=== PATIENT | female | born 1970 | race Caucasian/White ===

== ENCOUNTER 2017-01-16 11:31 | Observation (INO) | payer OTHER ==
[~2017-01-16] VITALS: Ht 167.6 cm; Wt 62.7 kg
[2017-01-16 11:40] VITALS: BP 125/68; PULSE 74; RESP 18; TEMP 97.8; O2SAT 100
[2017-01-16] MEDS ORDERED: ASPIRIN 325 MG TAB PO ONE (12:00)
[2017-01-16] MEDS ORDERED: SODIUM CHLORIDE 0.9% FLUSH 10 ML FLUSH IVF PRN (12:00)
--- NOTE | 2017-01-16 12:04 | PD ---
HPI Chief Complaint: Chest Pain Time Seen by Provider: 11:52 Travel History International Travel<30 days: No Contact w/Intl Traveler<30days: No Traveled to known affect area: No History of Present Illness HPI 47 y/o female presents with chest pain to her left side while shopping today. She took tylenol prior to arrival with no change. Now at rest her pain has resolved. She denies any other complaints at this time. quality was pressure. severity is resolved. denies specific modifying factors. she notes seen in past with holter monitor but no significant findings. denies taking an aspirin today. [facility] Past Medical History Medical History: Denies Significant Hx Diminished Hearing: No ?: Not Past Surgical History Hysterectomy: Yes Social History Alcohol Use: Yes (occ) Tobacco Use: No Substance Use: No Allergies-Medications (Allergen,Severity, Reaction): Coded Allergies: No Known Allergies (Verified , 01/16/17) Reported Meds & Prescriptions Reported Meds & Active Scripts Active No Active Prescriptions or Reported Medications Review of Systems Except as stated in HPI: all other systems reviewed are Neg Physical Exam Narrative GENERAL: Well-nourished, well-developed patient. SKIN: Warm and dry. HEAD: Normocephalic and atraumatic. EYES: No injection or drainage. ENT: No nasal drainage noted. NECK: Supple, trachea midline. CARDIOVASCULAR: Regular rate and rhythm RESPIRATORY: Breath sounds equal bilaterally. No accessory muscle use. GASTROINTESTINAL: Abdomen soft, non-tender, nondistended. EXTREMITIES: No edema. NEUROLOGICAL: Awake and alert. Motor and sensory grossly within normal limits. Normal speech. Data Data Last Documented VS Vital Signs Date Time Temp Pulse Resp B/P (MAP) Pulse Ox O2 Delivery O2 Flow Rate FiO2 01/16/17 13:12 71 18 109/73 (85) 100 Room Air 01/16/17 11:40 97.8 Orders Orders Electrocardiogram (01/16/17 11:55) Ckmb (Isoenzyme) Profile (01/16/17 11:55) Complete Blood Count With Diff (01/16/17 11:55) Comprehensive Metabolic Panel (01/16/17 11:55) D-Dimer (01/16/17 11:55) Magnesium (Mg) (01/16/17 11:55) Prothrombin Time / Inr (Pt) (01/16/17 11:55) Act Partial Throm Time (Ptt) (01/16/17 11:55) Troponin I (01/16/17 11:55) Lipase (01/16/17 11:55) Chest, Single Ap (01/16/17 11:55) Ecg Monitoring (01/16/17 11:55) Bilateral Bp Monitoring (01/16/17 11:55) Iv Access Insert/Monitor (01/16/17 11:55) Oximetry (01/16/17 11:55) Aspirin (Aspirin) (01/16/17 12:00) Sodium Chloride 0.9% Flush (Ns Flush) (01/16/17 12:00) Electrocardiogram (01/16/17 14:45) Ckmb (Isoenzyme) Profile (01/16/17 14:45) Troponin I (01/16/17 14:45) Admit Order (Ed Use Only) (01/16/17 13:53) Labs Laboratory Tests Test 01/16/17 11:45 White Blood Count 4.3 TH/MM3 Red Blood Count 3.82 MIL/MM3 Hemoglobin 11.9 GM/DL Hematocrit 35.3 % Mean Corpuscular Volume 92.3 FL Mean Corpuscular Hemoglobin 31.3 PG Mean Corpuscular Hemoglobin Concent 33.9 % Red Cell Distribution Width 12.5 % Platelet Count 220 TH/MM3 Mean Platelet Volume 7.4 FL Neutrophils (%) (Auto) 59.5 % Lymphocytes (%) (Auto) 26.5 % Monocytes (%) (Auto) 10.7 % Eosinophils (%) (Auto) 2.6 % Basophils (%) (Auto) 0.7 % Neutrophils # (Auto) 2.5 TH/MM3 Lymphocytes # (Auto) 1.2 TH/MM3 Monocytes # (Auto) 0.5 TH/MM3 Eosinophils # (Auto) 0.1 TH/MM3 Basophils # (Auto) 0.0 TH/MM3 CBC Comment DIFF FINAL Differential Comment Prothrombin Time 10.3 SEC Prothromb Time International Ratio 0.9 RATIO Activated Partial Thromboplast Time 25.4 SEC D-Dimer Quantitative (PE/DVT) 0.31 MG/L FEU Blood Urea Nitrogen 16 MG/DL Creatinine 0.72 MG/DL Random Glucose 99 MG/DL Total Protein 6.5 GM/DL Albumin 3.4 GM/DL Calcium Level 8.3 MG/DL Magnesium Level 2.1 MG/DL Alkaline Phosphatase 49 U/L Aspartate Amino Transf (AST/SGOT) 18 U/L Alanine Aminotransferase (ALT/SGPT) 20 U/L Total Bilirubin 0.4 MG/DL Sodium Level 138 MEQ/L Potassium Level 3.7 MEQ/L Chloride Level 105 MEQ/L Carbon Dioxide Level 26.9 MEQ/L Anion Gap 6 MEQ/L Estimat Glomerular Filtration Rate 87 ML/MIN Total Creatine Kinase 87 U/L Troponin I LESS THAN 0.02 NG/ML Lipase 151 U/L MDM Medical Decision Making Medical Screen Exam Complete: Yes Emergency Medical Condition: Yes Medical Record Reviewed: Yes (pmh confirmed, prior visits for palpitations reviewed) Interpretation(s) EKG is sinus rhythm at 80, very mild ST depression V2 and V3 without ST elevation or T-wave inversion CBC & BMP Diagram 01/16/17 11:45 Total Protein 6.5, Albumin 3.4, Calcium Level 8.3 L, Magnesium Level 2.1, Alkaline Phosphatase 49, Aspartate Amino Transf (AST/SGOT) 18, Alanine Aminotransferase (ALT/SGPT) 20, Total Bilirubin 0.4 cxr no acute Differential Diagnosis PE, costochondritis, gastritis, atypical cardiac Narrative Course Will check blood work, chest x-ray, EKG and dose with aspirin. Pain free now labs, cxr no emergent, agrees to [facility] deputy sheriff court security observation for further care Physician Communication Physician Communication dr oseguera agrees to admit Diagnosis Primary Impression: Chest pain Qualified Codes: R07.9 - Chest pain, unspecified Admitting Information Admitting Physician Requests: Observation Scripts No Active Prescriptions or Reported Meds Carleen Liu MD Jan 16, 2017 12:04
[2017-01-16 12:05] VITALS: BP_SYST 111; BP_SYST 120; BP_DIAS 68; BP_DIAS 70; PULSE 78; PULSE 81; RESP 18; O2SAT 100
[2017-01-16 12:15] LABS: AUTOMATED NEUTROPHIL # 2.5 TH/MM3 (1.8-7.7); BASOPHIL % 0.7 % (0.0-2.0); EOSINOPHIL # 0.1 TH/MM3 (0-0.4); EOSINOPHIL % 2.6 % (0.0-4.0); HEMATOCRIT 35.3 % (35.0-46.0); HEMO FLAGS DIFF FINAL; LYMPH % 26.5 % (9.0-44.0); LYMPHOCYTE # 1.2 TH/MM3 (1.0-4.8); MEAN CELL VOLUME 92.3 FL (80.0-100.0); MEAN CORPUSCULAR HEMOGLOBIN 31.3 PG (27.0-34.0); MEAN CORPUSCULAR HGB CONC 33.9 % (32.0-36.0); MONO % 10.7 % (0.0-8.0); NEUT % 59.5 % (16.0-70.0); PLATELET COUNT 220 TH/MM3 (150-450); RED BLOOD COUNT 3.82 MIL/MM3 (4.00-5.30); RED CELL DISTRIBUTION WIDTH 12.5 % (11.6-17.2); WHITE BLOOD COUNT 4.3 TH/MM3 (4.0-11.0)
[2017-01-16 12:24] LABS: CHLORIDE 105 MEQ/L (98-107); POTASSIUM 3.7 MEQ/L (3.5-5.1); SODIUM (NA) 138 MEQ/L (136-145)
[2017-01-16 12:28] LABS: ANION GAP 6 MEQ/L (5-15); BICARBONATE 26.9 MEQ/L (21.0-32.0); BLOOD UREA NITROGEN 16 MG/DL (7-18); MAGNESIUM 2.1 MG/DL (1.5-2.5)
[2017-01-16 12:31] LABS: ALT (GPT) 20 U/L (10-53); AST (GOT) 18 U/L (15-37); GLOMERULAR FILTRATION RATE 87 ML/MIN (>89)
[2017-01-16 12:32] LABS: TOTAL BILIRUBIN ADULT 0.4 MG/DL (0.2-1.0)
[2017-01-16 12:33] LABS: ALKALINE PHOSPHATASE 49 U/L (45-117); APTT (PATIENT) 25.4 SEC (24.3-30.1); INTERNATIONAL NORMALIZED RATIO 0.9 RATIO; PROTHROMBIN TIME - PATIENT 10.3 SEC (9.8-11.6)
[2017-01-16 12:37] LABS: CREATINE KINASE 87 U/L (26-192)
--- NOTE | 2017-01-16 12:42 | RADRPT ---
EXAM DATE/TIME: 01/16/2017 12:29 [facility] COMPARISON: No previous studies available for comparison. INDICATIONS : Chest pain starting this morning. MEDICAL HISTORY : None. SURGICAL HISTORY : None. ENCOUNTER: Initial ACUITY: 1 day PAIN SCORE: 7/10 LOCATION: Left chest FINDINGS: A single view of the chest demonstrates the lungs to be symmetrically aerated without evidence of mas s, infiltrate or effusion. The cardiomediastinal contours are unremarkable. Osseous structures are intact. CONCLUSION: 1. No acute cardiopulmonary disease. Andry Petersen MD on January 16, 2017 at 12:41 Board Certified Radiologist. This report was verified electronically.
[2017-01-16 13:12] VITALS: BP 109/73; PULSE 71; RESP 18; O2SAT 100
--- NOTE | 2017-01-16 13:54 | EKG ---
Date Performed: 01/16/2017 Time Performed: 11:40:56 PTAGE: 47 years EKG: Sinus rhythm MINIMAL NONSPECIFIC ST DEPRESSION BORDERLINE ECG NO PREVIOUS TRACING DOCTOR: Andi Dixon Interpretating Date/Time 01/16/2017 13:53:24
[2017-01-16] MEDS ORDERED: REGADENOSON INJ 0.4 MG/5 ML SYR IV ONE (13:55)
[2017-01-16] MEDS ORDERED: ONDANSETRON HCL 4 MG/2 ML VIAL IVP PRN (14:00)
[2017-01-16] MEDS ORDERED: SODIUM CHLORIDE 0.9% FLUSH 10 ML FLUSH IV FLUSH PRN (14:00)
[2017-01-16] MEDS ORDERED: MAGNESIUM HYDROXIDE SUSP 30 ML CUP PO PRN (14:00)
[2017-01-16] MEDS ORDERED: MORPHINE SULFATE 4 MG/ML INJ IV PUSH PRN ×2 (14:00)
[2017-01-16] MEDS ORDERED: NALOXONE HCL 0.4 MG/ML AMP IV PUSH PRN (14:00)
[2017-01-16 14:46] VITALS: BP 116/65; PULSE 70; RESP 18; O2SAT 100
[2017-01-16] MEDS ORDERED: ENOXAPARIN SODIUM 40 MG/0.4 ML SYRINGE SQ SCH (15:00)
--- NOTE | 2017-01-16 15:06 | HHI.HP ---
[facility] Primary Care Physician Alexis Avelar MD Admission Diagnosis chest pain Diagnoses: (1) Chest pain Travel History International Travel<30 Days: No Contact w/Intl Traveler <30 Da: No Traveled to Known Affected Are: No History of Present Illness Mrs. Ring is a 47-year-old female. She comes into the emergency department today with complaints of chest pain. The chest pain did have an exertional correlation. She noticed it first when leaving her home to go shopping with her [id number]. The pain started about mildly at the left upper anterior chest. By the time she was in the store, walking around, the pain became more prominent and radiated to her left shoulder blade and left lower neck. Intensity increased and she came into the emergency department. Pain transiently subsided but has returned when she stands up to walk to the bathroom. Movements do not increase her pain. Deep breathing did cause some twinging at the same location, but not a complete reproduction of her pain. Hyperlipidemia is present in her family but no family history, that she knows of , of coronary artery disease. When seen she is resting on her stretcher and has no reports of chest pain. She has no other medical problems and takes no medications on a regular basis. The only positive finding in her family history is a maternal grandfather who had a CVA. Review of Systems Constitutional: DENIES: Fatigue, Fever, Chills Endocrine: DENIES: Abnorml menstrual pattern Eyes: DENIES: Blurred vision, Diplopia, Eye inflammation Ears, nose, mouth, throat: DENIES: Tinnitus, Hearing loss, Vertigo Respiratory: DENIES: Apneas, Cough, Wheezing, Shortness of breath Cardiovascular: COMPLAINS OF: Chest pain, DENIES: Palpitations, Syncope Gastrointestinal: DENIES: Abdominal pain, Black stools, Bloody stools Musculoskeletal: DENIES: Joint pain, Muscle aches, Stiffness Integumentary: DENIES: Abnormal pigmentation, Pruritus, Rash Hematologic/lymphatic: DENIES: Bruising, Lymphadenopathy Immunologic/allergic: DENIES: Eczema, Urticaria Neurologic: DENIES: Abnormal gait, Headache, Paresthesias Psychiatric: DENIES: Anxiety, Confusion, Hallucinations Past Family Social History Past Medical History None Past Surgical History None Reported Medications Reported Meds & Active Scripts Active No Active Prescriptions or Reported Medications Allergies: Coded Allergies: No Known Allergies (Verified , 01/16/17) Family History CVA in maternal grandfather Patient knows of no positive medical history in her mother or father Social History No smoking No illicit drug abuse Approximately 3 beers per evening of alcohol use Physical Exam Vital Signs Vital Signs Date Time Temp Pulse Resp B/P (MAP) Pulse Ox O2 Delivery O2 Flow Rate FiO2 01/16/17 14:46 70 18 116/65 (82) 100 Room Air 01/16/17 13:12 71 18 109/73 (85) 100 Room Air 01/16/17 12:05 78 18 111/70 (84) 100 Room Air 01/16/17 12:05 81 18 120/68 (85) 100 Room Air 01/16/17 11:40 74 18 100 Room Air 01/16/17 11:40 97.8 74 18 125/68 (87) 100 01/16/17 11:40 100 Room Air Physical Exam GENERAL: NAD, A&Ox3 HEAD: Normocephalic. NECK: Supple, trachea midline. No lymphadenopathy. EYES: No scleral icterus. No injection or drainage. CARDIOVASCULAR: Regular rate and rhythm without murmurs, gallops, or rubs. RESPIRATORY: Breath sounds equal bilaterally. No accessory muscle use. GASTROINTESTINAL: Abdomen soft, non-tender, nondistended. MUSCULOSKELETAL: No cyanosis, or edema. Increased swelling at right lower extremity compared to left SKIN: Warm and dry. NEURO: No focal neurological deficitis. Laboratory Laboratory Tests Test 01/16/17 11:45 01/16/17 14:35 White Blood Count 4.3 Red Blood Count 3.82 Hemoglobin 11.9 Hematocrit 35.3 Mean Corpuscular Volume 92.3 Mean Corpuscular Hemoglobin 31.3 Mean Corpuscular Hemoglobin Concent 33.9 Red Cell Distribution Width 12.5 Platelet Count 220 Mean Platelet Volume 7.4 Neutrophils (%) (Auto) 59.5 Lymphocytes (%) (Auto) 26.5 Monocytes (%) (Auto) 10.7 Eosinophils (%) (Auto) 2.6 Basophils (%) (Auto) 0.7 Neutrophils # (Auto) 2.5 Lymphocytes # (Auto) 1.2 Monocytes # (Auto) 0.5 Eosinophils # (Auto) 0.1 Basophils # (Auto) 0.0 CBC Comment DIFF FINAL Differential Comment Prothrombin Time 10.3 Prothromb Time International Ratio 0.9 Activated Partial Thromboplast Time 25.4 D-Dimer Quantitative (PE/DVT) 0.31 Blood Urea Nitrogen 16 Creatinine 0.72 Random Glucose 99 Total Protein 6.5 Albumin 3.4 Calcium Level 8.3 Magnesium Level 2.1 Alkaline Phosphatase 49 Aspartate Amino Transf (AST/SGOT) 18 Alanine Aminotransferase (ALT/SGPT) 20 Total Bilirubin 0.4 Sodium Level 138 Potassium Level 3.7 Chloride Level 105 Carbon Dioxide Level 26.9 Anion Gap 6 Estimat Glomerular Filtration Rate 87 Total Creatine Kinase 87 Troponin I LESS THAN 0.02 Lipase 151 Result Diagram: 01/16/17 1145 01/16/17 1145 Caprini VTE Risk Assessment Ervinrinnancy VTE Risk Assessment: No/Low Risk (score <= 1) Caprini Risk Assessment Model Point Value = 1 Point Value = 2 Point Value = 3 Point Value = 5 Age 41-60 Minor surgery BMI > 25 kg/m2 Swollen legs Varicose veins or History of unexplained or recurrent spontaneous Oral contraceptives or hormone replacement Sepsis (< 1 month) Serious lung disease, including pneumonia (< 1 month) Abnormal pulmonary function Acute myocardial infarction Congestive heart failure (< 1 month) History of inflammatory bowel disease Medical patient at bed rest Age 61-74 Arthroscopic surgery Major open surgery (> 45 min) Laparoscopic surgery (> 45 min) Malignancy Confined to bed (> 72 hours) Immobilizing plaster cast Central venous access Age >= 75 History of VTE Family history of VTE Factor V Leiden Prothrombin [id number] Lupus anticoagulant Anticardiolipin antibodies Elevated serum homocysteine Heparin-induced thrombocytopenia Other congenital or acquired thrombophilia Stroke (< 1 month) Elective arthroplasty Hip, pelvis, or leg fracture Acute spinal cord injury (< 1 month) Prophylaxis Regimen Total Risk Factor Score Risk Level Prophylaxis Regimen 0-1 Low Early ambulation 2 Moderate Order ONE of the following: *Sequential Compression Device (SCD) *Heparin 5000 units SQ BID 3-4 Higher Order ONE of the following medications: *Heparin 5000 units SQ TID *Enoxaparin/Lovenox 40 mg SQ daily (WT < 150 kg, CrCl > 30 mL/min) *Enoxaparin/Lovenox 30 mg SQ daily (WT < 150 kg, CrCl > 10-29 mL/min) *Enoxaparin/Lovenox 30 mg SQ BID (WT < 150 kg, CrCl > 30 mL/min) AND/OR *Sequential Compression Device (SCD) 5 or more Highest Order ONE of the following medications: *Heparin 5000 units SQ TID (Preferred with Epidurals) *Enoxaparin/Lovenox 40 mg SQ daily (WT < 150 kg, CrCl > 30 mL/min) *Enoxaparin/Lovenox 30 mg SQ daily (WT < 150 kg, CrCl > 10-29 mL/min) *Enoxaparin/Lovenox 30 mg SQ BID (WT < 150 kg, CrCl > 30 mL/min) AND *Sequential Compression Device (SCD) Assessment and Plan Problem List: (1) Chest pain ICD Code: R07.9 - Chest pain, unspecified Status: Acute Assessment and Plan Assessment and plan 47-year-old female without any past medical history, admitted for chest pain. Chest pain Evaluate for ACS Follow cardiac enzymes Aspirin daily When necessary oxygen When necessary morphine for pain. When necessary nitroglycerin Follow on telemetry DVT prophylaxis Lovenox Problem Qualifiers (1) Chest pain: Qualified Codes: R07.9 - Chest pain, unspecified Amado Mandujano MD Jan 16, 2017 15:06
[2017-01-16 15:13] LABS: CREATINE KINASE 76 U/L (26-192)
--- NOTE | 2017-01-16 15:56 | EKG ---
Date Performed: 01/16/2017 Time Performed: 14:41:13 PTAGE: 47 years EKG: Sinus rhythm NORMAL ECG PREVIOUS TRACING : 01/16/2017 11.40 No significant change from previous tracing noted. DOCTOR: Andi Dixon Interpretating Date/Time 01/16/2017 15:54:14
[2017-01-16 16:12] VITALS: BP 99/69
[2017-01-16 19:06] LABS: CREATINE KINASE 76 U/L (26-192)
[2017-01-16 20:08] VITALS: BP 97/66; PULSE 72; RESP 20; TEMP 97.2; O2SAT 99
[2017-01-16] MEDS: SODIUM CHLORIDE 0.9% FLUSH 10 ML FLUSH IV FLUSH SCH (21:00)
[2017-01-17 00:08] VITALS: BP 99/62; PULSE 67; RESP 16; TEMP 98; O2SAT 98
--- NOTE | 2017-01-17 01:16 | EKG ---
Date Performed: 01/16/2017 Time Performed: 17:46:32 PTAGE: 47 years EKG: Sinus rhythm NORMAL ECG PREVIOUS TRACING : 01/16/2017 14.41 No significant change from previous tracing noted. DOCTOR: Andi Dixon Interpretating Date/Time 01/17/2017 01:14:22
[2017-01-17 04:50] VITALS: BP 107/68; PULSE 63; RESP 18; TEMP 97.7; O2SAT 99
[2017-01-17 07:15] LABS: AUTOMATED NEUTROPHIL # 1.9 TH/MM3 (1.8-7.7); EOSINOPHIL # 0.1 TH/MM3 (0-0.4); EOSINOPHIL % 3.8 % (0.0-4.0); HEMATOCRIT 31.3 % (35.0-46.0); HEMO FLAGS DIFF FINAL; LYMPH % 33.1 % (9.0-44.0); LYMPHOCYTE # 1.2 TH/MM3 (1.0-4.8); MEAN CELL VOLUME 94.6 FL (80.0-100.0); MEAN CORPUSCULAR HEMOGLOBIN 32.5 PG (27.0-34.0); MEAN CORPUSCULAR HGB CONC 34.4 % (32.0-36.0); MONO % 11.3 % (0.0-8.0); NEUT % 50.8 % (16.0-70.0); PLATELET COUNT 173 TH/MM3 (150-450); RED BLOOD COUNT 3.31 MIL/MM3 (4.00-5.30); RED CELL DISTRIBUTION WIDTH 12.8 % (11.6-17.2); WHITE BLOOD COUNT 3.6 TH/MM3 (4.0-11.0)
[2017-01-17 07:24] LABS: CHLORIDE 107 MEQ/L (98-107); POTASSIUM 3.7 MEQ/L (3.5-5.1); SODIUM (NA) 141 MEQ/L (136-145)
[2017-01-17 07:33] LABS: ANION GAP 6 MEQ/L (5-15); BICARBONATE 27.8 MEQ/L (21.0-32.0); BLOOD UREA NITROGEN 21 MG/DL (7-18)
[2017-01-17 07:36] LABS: ALT (GPT) 17 U/L (10-53); AST (GOT) 15 U/L (15-37); GLOMERULAR FILTRATION RATE 85 ML/MIN (>89)
[2017-01-17 07:37] LABS: TOTAL BILIRUBIN ADULT 0.2 MG/DL (0.2-1.0)
[2017-01-17 07:39] LABS: ALKALINE PHOSPHATASE 44 U/L (45-117)
[2017-01-17] MEDS: SODIUM CHLORIDE 0.9% FLUSH 10 ML FLUSH IV FLUSH SCH (07:51)
[2017-01-17 08:00] VITALS: BP 105/78; PULSE 68; RESP 21; TEMP 97.7; O2SAT 100
[2017-01-17 12:00] VITALS: BP 112/72; PULSE 72; RESP 18; TEMP 98; O2SAT 96
--- NOTE | 2017-01-17 12:24 | RADRPT ---
EXAM DATE/TIME: 01/17/2017 10:19 [facility] COMPARISON: No previous studies available for comparison. INDICATIONS : Chest pain. Angina. DOSE: 27.7 mCi Tc99m Myoview at stress. 8.4 mCi Tc99m Myoview at rest. 0.4 mg Lexiscan STRESS SYMPTOMS: Weird feeling and headache. EJECTION FRACTION: 59% MEDICAL HISTORY : Hypercholesterolemia. SURGICAL HISTORY : Hysterectomy. ENCOUNTER: Initial ACUITY: 1 day PAIN SCALE: 0/10 LOCATION: Substernal chest TECHNIQUE: The patient underwent pharmacologic stress with infusion of prescribed dose. Continuous ECG tracing was monitored during stress. Gated SPECT imaging was performed after stress and conventional SPECT i maging was performed at rest. The examination was performed on a SPECT/CT scanner, both attenuation and non-corrected datasets were reviewed. FINDINGS: DISTRIBUTION: The maximum perfused segment at stress is in the <mid anterolateral> wall. PERFUSION STUDY: The pattern of perfusion at stress is within normal limits when accounting for artifact of the entire inferior wall. There is significant activity related to the gut. GATED STUDY: There is intact wall motion and thickening without hypokinetic or dyskinetic segments. CONCLUSION: Unremarkable study except for overlying gastrointestinal activity obscuring the inferior wall RISK CATEGORY: Low (<1% Annual Mortality Rate) Maik Cueto MD on January 17, 2017 at 12:20 Board Certified Radiologist. This report was verified electronically.
--- NOTE | 2017-01-17 12:30 | TR ---
Date Performed: 01/17/2017 Time Performed: 10:48:26 DOCTOR: Tal Stuart DRUG LIST: CLINICAL HISTORY: REASON FOR TEST: REASON FOR ENDING: OBSERVATION: CONCLUSION: Patient exercised using the Bradley protocol. Mild non-specific Twave changes were see n in the inf-lat leads but No electrocardiographic changes were seen diagnostic of ischemia. Hemodyna daysi response to exercise was normal. No significant arrhythmia was present. COMMENTS: Low probability of significant ischemia as cause for current presentation.
--- NOTE | 2017-01-17 12:46 | HHI.DS ---
Discharge Summary Admission Date Jan 16, 2017 at 13:54 Discharge Date: Jan 17, 2017 Admitting Diagnosis chest pain (1) Chest pain ICD Code: R07.9 - Chest pain, unspecified Diagnosis: Principal Status: Acute Procedures Chemical Stress Test Brief History - From Admission Mrs. Ring is a 47-year-old female. She comes into the emergency department today with complaints of chest pain. The chest pain did have an exertional correlation. She noticed it first when leaving her home to go shopping with her [id number]. The pain started about mildly at the left upper anterior chest. By the time she was in the store, walking around, the pain became more prominent and radiated to her left shoulder blade and left lower neck. Intensity increased and she came into the emergency department. Pain transiently subsided but has returned when she stands up to walk to the bathroom. Movements do not increase her pain. Deep breathing did cause some twinging at the same location, but not a complete reproduction of her pain. Hyperlipidemia is present in her family but no family history, that she knows of , of coronary artery disease. When seen she is resting on her stretcher and has no reports of chest pain. She has no other medical problems and takes no medications on a regular basis. The only positive finding in her family history is a maternal grandfather who had a CVA. CBC/BMP: 01/17/17 0605 01/17/17 0605 Significant Findings Laboratory Tests Test 01/16/17 11:45 01/16/17 14:35 01/16/17 17:55 01/17/17 06:05 Red Blood Count 3.82 MIL/MM3 (4.00-5.30) 3.31 MIL/MM3 (4.00-5.30) Monocytes (%) (Auto) 10.7 % (0.0-8.0) 11.3 % (0.0-8.0) Calcium Level 8.3 MG/DL (8.5-10.1) 7.9 MG/DL (8.5-10.1) Estimat Glomerular Filtration Rate 87 ML/MIN (>89) 85 ML/MIN (>89) Troponin I LESS THAN 0.02 NG/ML LESS THAN 0.02 NG/ML LESS THAN 0.02 NG/ML White Blood Count 3.6 TH/MM3 (4.0-11.0) Hemoglobin 10.8 GM/DL (11.6-15.3) Hematocrit 31.3 % (35.0-46.0) Blood Urea Nitrogen 21 MG/DL (7-18) Total Protein 5.8 GM/DL (6.4-8.2) Albumin 2.9 GM/DL (3.4-5.0) Alkaline Phosphatase 44 U/L (45-117) Hospital Course Mrs. Ring is a 47 year old female. She came in with chest pain. Work up was negative including monitoring of cardiac enzymes, EKG and a Chemical Stress Test. At this point she has no persistence of her chest pain and cardiac etiologies are unlikely. She is medically stable for discharge to home today. Pt Condition on Discharge: Stable Discharge Disposition: Discharge Home Discharge Time: <= 30 minutes Discharge Instructions DIET: Follow Instructions for: As Tolerated, No Restrictions Activities you can perform: Regular-No Restrictions Follow up Referrals: PCP Follow-up - 2 Weeks Medication Profile: No Active Prescriptions or Reported Meds Amado Mandujano MD Jan 17, 2017 12:46
== END 2017-01-17 13:27 | disposition home or self-care (01) ==
LOC: PHED 11:31 → PHEDA 13:54 → PH3B 16:09
PROVIDERS: ADMIT Hospitalist; ATTEND Hospitalist
DX: R07.9 Chest pain, unspecified (principal); R94.31 Abnormal electrocardiogram [ECG] [EKG]; Z82.3 Family history of stroke
CPT/HCPCS: 71010; 78452; 80053; 82550; 83690; 83735; 84484; 85025; 85379; 85610; 85730; 93005; 93017; 99285; A9502; G0378; J1650; J2785